=== PATIENT | male | born 1990 | race Caucasian/White ===

== ENCOUNTER → 2017-08-24 | Outpatient (REF) | payer BC ==
[2017-08-24 16:48] LABS: HEMATOCRIT 45.5 % (42.0-52.0); HEMOGLOBIN 15.6 g/dl (14.0-18.0); MEAN CORPUSCULAR HEMOGLOBIN 30.8 pg (27.0-33.0); MEAN CORPUSCULAR HGB CONC 34.3 g/dl (32.0-36.5); MEAN CORPUSCULAR VOLUME 89.9 fl (80.0-96.0); PLATELET COUNT, AUTOMATED 306 10^3/uL (150-450); RED BLOOD COUNT 5.06 10^6/uL (4.30-6.10); RED CELL DISTRIBUTION WIDTH 11.9 % (11.5-14.5); WHITE BLOOD COUNT 6.1 10^3/uL (4.0-10.0)
[2017-08-24 17:17] LABS: ALBUMIN 4.5 GM/DL (3.2-5.2); ALBUMIN/GLOBULIN RATIO 1.41 (1.00-1.93); ALKALINE PHOSPHATASE 50 U/L (45-117); ALT/SGPT 44 U/L (12-78); ANION GAP 6 MEQ/L (8-16); AST/SGOT 26 U/L (7-37); BILIRUBIN,TOTAL 0.9 MG/DL (0.2-1.0); BLOOD UREA NITROGEN 14 MG/DL (7-18); CALCIUM LEVEL 9.2 MG/DL (8.5-10.1); CARBON DIOXIDE LEVEL 31 MEQ/L (21-32); CHLORIDE LEVEL 102 MEQ/L (98-107); CHOLESTEROL LEVEL 196 MG/DL (<200); CREATININE FOR GFR 1.04 MG/DL (0.70-1.30); GLOMERULAR FILTRATION RATE > 60.0 (>60); GLUCOSE, FASTING 103 MG/DL (70-105); HDL CHOLESTEROL 46 MG/DL (>40); LDL CHOLESTEROL 81.8 MG/DL (<100); NON-HDL-C 150 MG/DL; POTASSIUM SERUM 4.2 MEQ/L (3.5-5.1); SODIUM LEVEL 139 MEQ/L (136-145); TOTAL PROTEIN 7.7 GM/DL (6.4-8.2); TRIGLYCERIDES LEVEL 341 MG/DL (<150)
[2017-08-27 00:06] LABS: Lyme Disease IgG/IgM Antibodie <0.91 ISR (0.00-0.90); Lyme Disease IgM Ab Quantitati <0.80 index (0.00-0.79)
== END ==
LOC: M SFHCCLAY 11:05
DX: Z00.00 Encounter for general adult medical examination without abnormal findings (principal); J30.9 Allergic rhinitis, unspecified; R59.9 Enlarged lymph nodes, unspecified
CPT/HCPCS: 80053

== ENCOUNTER → 2019-01-17 | Outpatient (REF) | payer BC ==
[2019-01-17 11:47] LABS: HEMATOCRIT 45.4 % (42.0-52.0); HEMOGLOBIN 15.6 g/dl (13.5-17.5); MEAN CORPUSCULAR HEMOGLOBIN 31.3 pg (27.0-33.0); MEAN CORPUSCULAR HGB CONC 34.4 g/dl (32.0-36.5); PLATELET COUNT, AUTOMATED 236 10^3/uL (150-450); RED BLOOD COUNT 4.99 10^6/uL (4.30-6.10); WHITE BLOOD COUNT 5.4 10^3/uL (4.0-10.0)
[2019-01-17 12:20] LABS: ERYTHROCYTE SEDIMENTATION RATE 3 mm/hr (0-15)
[2019-01-17 12:25] LABS: ALT/SGPT 23 U/L (12-78); BLOOD UREA NITROGEN 15 MG/DL (7-18); CALCIUM LEVEL 9.7 MG/DL (8.5-10.1); CARBON DIOXIDE LEVEL 30 MEQ/L (21-32); CHLORIDE LEVEL 104 MEQ/L (98-107); CREATININE FOR GFR 1.03 MG/DL (0.70-1.30); GLOMERULAR FILTRATION RATE > 60.0 (>60); GLUCOSE, FASTING 105 MG/DL (70-100); POTASSIUM SERUM 4.1 MEQ/L (3.5-5.1); SODIUM LEVEL 141 MEQ/L (136-145)
[2019-01-17 12:26] LABS: ALBUMIN 4.6 GM/DL (3.2-5.2); CHOLESTEROL LEVEL 165 MG/DL (<200); HDL CHOLESTEROL 44 MG/DL (>40); LDL CHOLESTEROL 89 MG/DL (<100); NON-HDL-C 121 MG/DL; TOTAL PROTEIN 7.6 GM/DL (6.4-8.2); TRIGLYCERIDES LEVEL 161 MG/DL (<150)
[2019-01-19 00:07] LABS: Lyme Disease IgG/IgM Antibodie <0.91 ISR (0.00-0.90); Lyme Disease IgM Ab Quantitati <0.80 index (0.00-0.79)
== END ==
LOC: M SFHCCLAY 08:13
PROVIDERS: ATTEND Family Medicine
DX: Z00.01 Encounter for general adult medical examination with abnormal findings (principal); E78.1 Pure hyperglyceridemia; Z20.9 Contact with and (suspected) exposure to unspecified communicable disease; M25.571 Pain in right ankle and joints of right foot; M25.572 Pain in left ankle and joints of left foot

== ENCOUNTER 2019-03-10 10:04 | Day surgery (SDC) | payer BC ==
[~2019-03-10] VITALS: Ht 180.3 cm; Wt 85.0 kg
--- NOTE | 2019-03-10 11:17 | REP ---
RIGHT HAND SERIES: Four views right hand performed. There is a fracture of the distal 5th metacarpal with anterior displacement and angulation. There is also a fracture of the distal 4th metacarpal with a very mild degree of anterior displacement and angulation. No other acute fracture or dislocation is seen. Electronically Signed by Manuel Hooks MD 03/11/2019 09:21 P
[2019-03-10] MEDS ORDERED: KETOROLAC 60 MG/2 ML VIAL (J1885) IM ONE (11:30)
[2019-03-10] MEDS ORDERED: ACETAMINOPHEN 500 MG TAB PO ONE (11:30)
[2019-03-10] MEDS ORDERED: PROPOFOL 200 MG/20 ML VIAL As Ordered ONE ×2 (13:55→14:31)
[2019-03-10] MEDS ORDERED: LIDOCAINE 2% INJ 100 MG/5 ML SDV (FOR ANES.) As Ordered ONE (13:55)
[2019-03-10 13:56] LABS: BASO % 0.8 % (0.0-1.0); EOS % 0.3 % (0.0-3.0); HEMATOCRIT 43.7 % (42.0-52.0); HEMOGLOBIN 15.2 g/dl (13.5-17.5); LYMPH # 1.2 10^3/uL (1.5-6.5); LYMPH % 30.9 % (24.0-44.0); MEAN CORPUSCULAR HEMOGLOBIN 32.2 pg (27.0-33.0); MEAN CORPUSCULAR HGB CONC 34.8 g/dl (32.0-36.5); MEAN CORPUSCULAR VOLUME 92.6 fl (80.0-96.0); MONO # 0.6 10^3/uL (0.0-0.8); MONO % 15.1 % (0.0-5.0); NEUTROPHILS # 2.1 10^3/uL (1.8-7.7); NEUTROPHILS % 52.1 % (36.0-66.0); PLATELET COUNT, AUTOMATED 243 10^3/uL (150-450); RED BLOOD COUNT 4.72 10^6/uL (4.30-6.10); WHITE BLOOD COUNT 3.9 10^3/uL (4.0-10.0)
[2019-03-10] MEDS ORDERED: fentaNYL 100 MCG/2 ML INJECTION (J3010) As Ordered ONE (13:57)
[2019-03-10] MEDS ORDERED: MIDAZOLAM INJ 2 MG/2 ML VIAL (J2250) As Ordered ONE (13:57)
[2019-03-10] MEDS ORDERED: dexameTHASONE 4 MG/ML 1ML VIAL (J1100) As Ordered ONE (13:58)
[2019-03-10] MEDS ORDERED: ONDANSETRON 4MG/2ML VIAL (J2405) As Ordered ONE (13:58)
[2019-03-10 14:16] LABS: BLOOD UREA NITROGEN 15 MG/DL (7-18); CALCIUM LEVEL 8.6 MG/DL (8.5-10.1); CARBON DIOXIDE LEVEL 28 MEQ/L (21-32); CHLORIDE LEVEL 104 MEQ/L (98-107); CREATININE FOR GFR 1.06 MG/DL (0.70-1.30); GLOMERULAR FILTRATION RATE > 60.0 (>60); GLUCOSE, FASTING 118 MG/DL (70-100); POTASSIUM SERUM 4.5 MEQ/L (3.5-5.1); SODIUM LEVEL 140 MEQ/L (136-145)
[2019-03-10] MEDS ORDERED: ceFAZolin 2 GM/D5W 50 ML IV BAG (J0690 PER 500MG) As Ordered ONE (14:37)
[2019-03-10] MEDS ORDERED: BUPIVACAINE HCL 0.25% 30 ML VIAL As Ordered ONE (14:58)
[2019-03-10] MEDS ORDERED: HYDROmorphone HCL 2 MG/ML 1ML VIAL (J1170) As Ordered ONE (14:59)
[2019-03-10] MEDS ORDERED: PERCOCET 5MG/325MG TAB PO PRN (16:30)
[2019-03-10] MEDS ORDERED: fentaNYL 100 MCG/2 ML INJECTION (J3010) IV PRN (16:30)
[2019-03-10] MEDS ORDERED: ONDANSETRON 4MG/2ML VIAL (J2405) IV PRN (16:30)
[2019-03-10] MEDS ORDERED: LR 1,000 ML IV SCH (16:30)
[2019-03-10 17:21] VITALS: BP 126/73
[2019-03-10 18:00] VITALS: BP 141/91
[2019-03-10 19:00] VITALS: BP 136/80
[2019-03-10 20:00] VITALS: BP 140/88
[2019-03-10 21:00] VITALS: BP 132/78
[2019-03-10 22:00] VITALS: BP 139/81
[2019-03-11 06:00] VITALS: BP 120/71
[2019-03-11] MEDS ORDERED: PERC5TAB12 PO ×2 (06:15→06:17)
[2019-03-11] MEDS ORDERED: KEFL500C17 PO (07:16)
--- NOTE | 2019-03-11 08:44 | REP ---
C-ARM VIEWS RIGHT HAND: Multiple C-arm views right hand performed. Metallic pins are placed in the 5th metacarpal . The distal 5th metacarpal appears relatively well-aligned and definitely improved since the prior exam of the same day. 11 seconds of fluoroscopy time utilized. Electronically Signed by Manuel Hooks MD 03/11/2019 10:37 P
--- NOTE | 2019-03-11 11:43 | HPE ---
DATE OF ADMISSION: 03/10/2019 CHIEF COMPLAINT: Right hand pain and deformity. HISTORY OF PRESENT ILLNESS: The patient struck a post this morning about 8:30 noticed immediate deformity and bleeding about his right dorsal hand. He tried to self-manage this for awhile and presented to the emergency room early this afternoon with that isolated complaint and I was then consulted for evaluation. There were no other active orthopedic complaints. PAST MEDICAL HISTORY: Denies. PAST SURGICAL HISTORY: Denies. MEDICATIONS: Claritin for seasonal allergies. DRUG ALLERGIES: None known. SOCIAL HISTORY: Denies tobacco use. Denies drug or alcohol abuse. REVIEW OF SYSTEMS: No recent fevers, chills, nausea, vomiting, diarrhea, constipation, chest pain or shortness of breath. EXAMINATION: Awake, alert and oriented times three, well-appearing man in no acute distress. Head is normocephalic, atraumatic. Extraocular muscles are intact. Cardiovascular: Regular rate and rhythm. Pulmonary: No increased work of breathing. Focused examination of right hand: There is a 2-3 mm laceration overlying the fracture site at the 5th metacarpal neck with some local venous oozing. The skin is otherwise intact and he is fully neurovascular intact. Distally there is a typical apex dorsal deformity about the 5th metacarpal with subtle rotation as well. The ipsilateral hand also shows tenderness about the 4th metacarpal with no gross, rotational deformity in this area. The remainder of his hand, wrist and forearm is grossly atraumatic. X-rays of the right hand show significantly displaced, somewhat comminuted fracture involving the neck of the right 5th metacarpal and also a fracture of the right 4th metacarpal neck with minimal displacement. ASSESSMENT: Grade 1 open fracture of the right hand 5th metacarpal with associated 4th metacarpal fracture. PLAN: The wound was copiously irrigated upon presentation to the emergency department and he is now been given a dose of IV antibiotics Ancef 2 grams. I discussed the treatment options, risks and benefits of operative and nonoperative management with him. He has elected to go forward with right hand open fracture irrigation and debridement and likely percutaneous pinning stabilization of the 4th and 5th metacarpals and any other procedures as indicated. He did sign a surgical consent in my presence and will get him to the operating room as soon as possible. KANWAL
--- NOTE | 2019-03-11 11:54 | RO ---
DATE OF ADMISSION: 03/10/2019 PREOPERATIVE DIAGNOSES: Right hand open 5th metacarpal neck fracture and 4th metacarpal neck fracture. POSTOPERATIVE DIAGNOSES: Right hand open 5th metacarpal neck fracture and 4th metacarpal neck fracture. PROCEDURE PERFORMED: Right hand open fracture wound irrigation and debridement and closed reduction and percutaneous pinning of the 5th metacarpal. SURGEON: Dr. Jose Daniel Tim. ZIPPER SLIDE ATTACHER: NORA Richardson ANESTHESIA: General. ESTIMATED BLOOD LOSS: Less than 10 mL. IMPLANTS: 0.045 K-wires times two. SPECIMENS REMOVED: None. No blood administered. COMPLICATIONS: None. DESCRIPTION OF PROCEDURE: The patient was identified in the preoperative holding area by name, medical number and date of . Surgical site was marked in consultation with the patient and he was evaluated by anesthesia. When he was ready, he was brought back to the operative suite on the [facility] and transferred to the operating room (OR) table. At this point general anesthesia was induced and the right upper extremity was sterilely prepped and draped in the usual fashion. Prior to beginning the procedure, a final time-out was performed and all in the room agreed. He was given IV antibiotics, Ancef, 2 grams prior to incision. I began the procedure by extending the open fracture wound a few millimeters on each side. There was a small amount of local contamination and this was generously irrigated out and the devitalized wound edges were debrided in a limited fashion. The wound was next closed. I next performed a closed reduction of the 4th and 5th metacarpal neck fractures with axial traction and pressure. These were reduced without difficulty. I next used a collateral recess pinning technique to stabilize the 5th metacarpal neck fracture achieving good fixation distally and proximally. Fluoroscopic views in AP lateral and multiple oblique planes confirmed satisfactory reduction and internal fixation. The pins were bent and trimmed appropriately and they were stable. The 4th metacarpal neck fracture, at this time, was assessed and was found to have anatomic reduction with satisfactory position and it did appear to be quite stable and so I elected not to place a fixation across that fracture site, given that now the 5th metacarpal was stable and he will be treated a cast that seemed to be sufficient stabilization for this injury. Sterile dressings and a well-padded ulnar gutter splint were applied. The patient was brought out of anesthesia and transferred to the post anesthesia care unit stable condition. I did inject a small amount of local anesthetic at the pin sites and the wound site is well. KANWAL
--- NOTE | 2019-03-11 14:47 | IPN ---
DATE OF SERVICE: 03/11/2019 HISTORY OF PRESENT ILLNESS: Postoperative day #1 right hand fifth metacarpal open fracture debridement, percutaneous pinning and splint application. No new complaints. His pain is well-controlled. He has been tolerating by mouth well. He is doing well and feels ready to discharge to home. OBJECTIVE: Awake, alert and oriented times three, well-appearing, in no acute distress. The splint on the right hand is clean, dry and intact distally. The fingertips are pink, warm, well-perfused, with less than 2 seconds capillary refill and sensation intact to light touch. He does have intact flicker extension and flexion of the ring and small finger, certainly limited due to his splint. ASSESSMENT: Postoperative day #1 right hand as above. PLAN: He can be discharged to home. Close monitoring of the neurovascular status of the fingertips. Return promptly for any changes, any fevers, chills, chest pain, shortness of breath or any concerns. He will contact the orthopedic clinic tomorrow morning to arrange a followup as soon as possible for a wound check and likely transition to casting. Keep the splint clean and dry, elevate to control swelling and he will be discharged home, pain medications and he will be ready to transition to [id number] medications probably in the next couple of days and we did discuss appropriate medication use and management. He is satisfied with the treatment plan at this time.
[2019-03-12 12:29] LABS: HEP C VIRUS AB INDEX SOURCE PT 0.1 INDEX (0.0-0.8); HEPATITIS B SURFACE ANTIGEN NEGATIVE (NEGATIVE)
== END 2019-03-11 10:15 | disposition home or self-care (01) ==
LOC: M ED 10:04 → M SDC 14:17 → M MS5PR 16:55 → M SDC 03-11 10:15
DX: S62.336A Displaced fracture of neck of fifth metacarpal bone, right hand, initial encounter for closed fracture (principal); S62.304B Unspecified fracture of fourth metacarpal bone, right hand, initial encounter for open fracture; W22.8XXA Striking against or struck by other objects, initial encounter; Y92.018 Other place in single-family (private) house as the place of occurrence of the external cause; Y93.89 Activity, other specified; Y99.9 Unspecified external cause status
CPT/HCPCS: 11010; 26608; 73130; 80048; 85025; 86803; 87340; 87806; 96372; 96374; 96376; 99284; J0690; J1100; J1170; J1885; J2250; J2405; J3010

== ENCOUNTER → 2021-10-27 | Outpatient (REF) | payer BC ==
[~2021-10-27] MED LIST: KEFL500C17 PO; PERC5TAB12 PO
[2021-10-27 15:55] LABS: HEMATOCRIT 44.9 % (42.0-52.0); HEMOGLOBIN 15.4 g/dl (13.5-17.5); MEAN CORPUSCULAR HEMOGLOBIN 31.4 pg (27.0-33.0); MEAN CORPUSCULAR HGB CONC 34.3 g/dl (32.0-36.5); MEAN CORPUSCULAR VOLUME 91.6 fl (80.0-96.0); PLATELET COUNT, AUTOMATED 247 10^3/uL (150-450); WHITE BLOOD COUNT 5.1 10^3/uL (4.0-10.0)
[2021-10-27 16:34] LABS: ALBUMIN 4.3 GM/DL (3.2-5.2); ALT/SGPT 30 U/L (12-78); BILIRUBIN,TOTAL 0.9 MG/DL (0.2-1.0); BLOOD UREA NITROGEN 12 MG/DL (7-18); CALCIUM LEVEL 9.4 MG/DL (8.5-10.1); CARBON DIOXIDE LEVEL 30 MEQ/L (21-32); CHLORIDE LEVEL 106 MEQ/L (98-107); CHOLESTEROL LEVEL 167 MG/DL (<200); CHOLESTEROL RISK RATIO 3.553 (<5); CREATININE FOR GFR 0.97 MG/DL (0.70-1.30); FREE T4 0.89 NG/DL (0.76-1.46); GLOMERULAR FILTRATION RATE > 60.0 (>60); GLUCOSE, FASTING 89 MG/DL (70-100); HDL CHOLESTEROL 47 MG/DL (>40); LDL CHOLESTEROL 95 MG/DL (<100); NON-HDL-C 120 MG/DL; POTASSIUM SERUM 4.4 MEQ/L (3.5-5.1); SODIUM LEVEL 141 MEQ/L (136-145); TOTAL PROTEIN 7.6 GM/DL (6.4-8.2); TRIGLYCERIDES LEVEL 127 MG/DL (<150)
[2021-10-29 17:10] LABS: Lyme Disease IgG/IgM Antibodie <0.91 ISR (0.00-0.90); Lyme Disease IgM Ab Quantitati <0.80 index (0.00-0.79)
== END ==
LOC: M SFHCCLAY 11:06
PROVIDERS: ATTEND Family Medicine
DX: Z00.00 Encounter for general adult medical examination without abnormal findings (principal)

== ENCOUNTER → 2023-03-22 | Outpatient (REF) | payer BC ==
[2023-03-22 18:37] LABS: BASO % 0.4 % (0.0-1.0); EOS # 0.1 10^3/uL (0.0-0.5); EOS % 1.9 % (0.0-3.0); HEMATOCRIT 45.8 % (42.0-52.0); HEMOGLOBIN 15.6 g/dl (13.5-17.5); LYMPH # 2.3 10^3/uL (1.5-5.0); LYMPH % 34.3 % (24.0-44.0); MEAN CORPUSCULAR HEMOGLOBIN 31.2 pg (27.0-33.0); MEAN CORPUSCULAR HGB CONC 34.1 g/dl (32.0-36.5); MEAN CORPUSCULAR VOLUME 91.6 fl (80.0-96.0); MONO # 0.5 10^3/uL (0.0-0.8); MONO % 6.9 % (2.0-8.0); NEUTROPHILS # 3.8 10^3/uL (1.5-8.5); NEUTROPHILS % 55.8 % (36.0-66.0); PLATELET COUNT, AUTOMATED 267 10^3/uL (150-450); WHITE BLOOD COUNT 6.8 10^3/uL (4.0-10.0)
[2023-03-22 18:55] LABS: ALKALINE PHOSPHATASE 52 U/L (46-116); ALT/SGPT 22 U/L (7.0-40); AST/SGOT 12 U/L (<34); BILIRUBIN,TOTAL 1.9 MG/DL (0.3-1.2); BLOOD UREA NITROGEN 15 MG/DL (9-23); CALCIUM LEVEL 9.6 MG/DL (8.5-10.1); CARBON DIOXIDE LEVEL 29 MMOL/L (20-31); CHLORIDE LEVEL 101 MMOL/L (98-107); CREATININE FOR GFR 0.91 MG/DL (0.70-1.30); GLOMERULAR FILTRATION RATE > 60.0 (>60); GLUCOSE, FASTING 78 MG/DL (60-100); POTASSIUM SERUM 3.9 MMOL/L (3.5-5.1); SODIUM LEVEL 138 MMOL/L (136-145); TOTAL PROTEIN 7.9 G/DL (5.7-8.2)
[2023-03-22 18:56] LABS: THYROID STIMULATING HORMONE 1.425 uIU/ML (0.55-4.78)
== END ==
LOC: M SFHCCLAY 14:13
PROVIDERS: ATTEND Physician Assistant
DX: R59.9 Enlarged lymph nodes, unspecified (principal)

== ENCOUNTER → 2023-09-09 | Outpatient (REF) | payer BC ==
[2023-09-09 19:05] LABS: RSV AMPLIFICATION NEGATIVE (NEGATIVE)
== END ==
LOC: M SFHCCLAY 11:39
PROVIDERS: ATTEND Family Medicine
DX: B34.9 Viral infection, unspecified (principal)